=== PATIENT | female | born 1955 | race African-American/Black ===

== ENCOUNTER 2018-12-14 12:06 | Emergency (ER) | payer MEDICAID ==
[~2018-12-14] VITALS: Ht 165.1 cm; Wt 100.0 kg
[2018-12-14] MEDS ORDERED: MORPHINE SULFATE 4 MG/ML CPJ (NOT FOR IM USE) IV STA (13:11)
[2018-12-14 15:48] LABS: EOSINOPHILS % 0.4 % (0.0-5.0); HEMATOCRIT. 41.1 % (36.0-48.0); HEMOGLOBIN. 13.6 g/dL (12.0-16.0); LYMPHOCYTES % 14.8 % (20.0-50.0); MEAN CORPUSCULAR HEMOGLOBIN 31.1 pg (28.0-32.0); MEAN CORPUSCULAR VOLUME 93.6 fL (81.0-99.0); MEAN PLATELET VOLUME 8.7 fl (7.4-10.4); MONOCYTES % 10.5 % (2.0-8.0); NEUTROPHILS % 73.3 % (40.0-76.0); PLATELET 180 x1000/uL (130-400); RED BLOOD CELL COUNT 4.39 mill/uL (4.2-5.4); RED CELL DISTRIBUTION WIDTH 15.3 % (11.6-14.6)
[2018-12-14 15:53] LABS: CHLORIDE 108 mEq/L (98-107)
[2018-12-14 15:54] LABS: INR 1.1; PROTHROMBIN TIME 10.8 sec (9.1-11.1)
[2018-12-14] MEDS ORDERED: PREDNISONE 20MG TABLET PO ONE (16:15)
[2018-12-14 16:52] VITALS: BP 145/75
== END 2018-12-14 17:52 | disposition home or self-care (01) ==
LOC: ER 12:06
DX: M25.561 Pain in right knee (principal); M10.9 Gout, unspecified; I11.0 Hypertensive heart disease with heart failure; I50.9 Heart failure, unspecified; E11.9 Type 2 diabetes mellitus without complications; Z88.8 Allergy status to other drugs, medicaments and biological substances
CPT/HCPCS: 36415; 73562; 80053; 83880; 84550; 85025; 85610; 93971; 96374; 99284; J2270; J7512

== ENCOUNTER 2023-09-11 14:41 | Emergency (ER) | payer MEDICAID, OTHER ==
[~2023-09-11] VITALS: Ht 162.6 cm; Wt 137.0 kg
[2023-09-11 15:08] VITALS: O2SAT 99
[2023-09-11] MEDS ORDERED: ACETAMINOPHEN 325MG TABLET PO ONE (15:15)
[2023-09-11 17:43] LABS: BASOPHILS % 1.2 % (0.0-2.0); HEMATOCRIT. 42.1 % (36.0-48.0); HEMOGLOBIN. 13.6 g/dL (12.0-16.0); MEAN CORPUSCULAR HEMOGLOBIN 31.1 pg (28.0-32.0); MEAN CORPUSCULAR HGB CONC 32.3 g/dL (31.0-37.0); MEAN CORPUSCULAR VOLUME 96.2 fL (81.0-99.0); MONOCYTES % 9.9 % (2.0-8.0); NEUTROPHILS % 59.9 % (40.0-76.0); PLATELET 226 x1000/uL (130-400); RED BLOOD CELL COUNT 4.37 mill/uL (4.2-5.4); RED CELL DISTRIBUTION WIDTH 14.7 % (11.6-14.6); WHITE BLOOD COUNT 4.3 x1000/uL (4.5-11.0)
[2023-09-11 17:52] LABS: INR 1.1; PROTHROMBIN TIME 11.8 sec (9.6-11.0)
[2023-09-11 17:56] LABS: ALANINE AMINOTRANSFERASE < 7 IU/L (10-49); ALBUMIN 3.9 g/dL (3.2-4.8); ASPARTATE AMINOTRANSFERASE 14 IU/L (<34); BILIRUBIN TOTAL 0.5 mg/dL (0.1-1.0); CALCIUM 10.2 mg/dL (8.7-10.4); CARBON DIOXIDE 29 mEq/L (21-32); CHLORIDE 108 mEq/L (98-107); CREATININE 1.5 mg/dL (0.6-1.0); GLUCOSE 89 mg/dL (70-105); PHOSPHORUS 2.5 mg/dL (2.5-4.9); POTASSIUM 4.9 mEq/L (3.5-5.1); PROTEIN TOTAL 7.5 g/dL (6.0-8.3); SODIUM 141 mEq/L (136-145); TROPONIN I HIGH SENSITIVITY 24 ng/L (3.0-34); UREA NITROGEN BLOOD 29 mg/dL (9-23)
[2023-09-11] MEDS ORDERED: OXYCODONE HCL/ACETAMINOPHEN 5/325MG TABLET PO ONE (18:00)
[2023-09-11] MEDS ORDERED: LIDOCAINE 5% PATCH TOP SCH (18:00)
[2023-09-11] MEDS ORDERED: ACETAMINOPHEN 325MG TABLET PO NR ×2 (21:16→21:39)
[2023-09-11] MEDS ORDERED: OXYCODONE HCL/ACETAMINOPHEN 5/325MG TABLET PO NR (21:19)
[2023-09-11] MEDS ORDERED: LIDOCAINE 5% PATCH TOP ONE (21:19)
[2023-09-11] MEDS ORDERED: NALOXONE HCL 0.4MG/ML VIAL IV PRN (21:30)
[2023-09-11] MEDS ORDERED: ACETAMINOPHEN 500MG TABLET PO NR (21:40)
[2023-09-11] MEDS: LIDOCAINE 5% PATCH TOP NR (21:42)
[2023-09-12 02:03] VITALS: BP 148/78; PULSE 86; RESP 18; TEMP 98.6
== END 2023-09-12 02:16 | disposition short-term general hospital (02) ==
LOC: ER 14:41
DX: M54.50 Low back pain, unspecified (principal); F12.10 Cannabis abuse, uncomplicated; E11.9 Type 2 diabetes mellitus without complications; I11.0 Hypertensive heart disease with heart failure; I50.9 Heart failure, unspecified
CPT/HCPCS: 36415; 74177; 80053; 83735; 84100; 84484; 85025; 93005; 99285